=== PATIENT | male | born 1945 | race Caucasian/White ===

== ENCOUNTER 2017-01-08 19:30 | Emergency (ER) | payer OTHER, MEDICARE ==
[~2017-01-08] VITALS: Ht 172.7 cm; Wt 122.5 kg
[~2017-01-08 19:30] MED LIST: ACETAMINOPHEN-1 EAC1 PO; ALBUTEROL2.5 MG/3 M INH; ALDACTONE25 MG PO; CARDURA4 MG PO; DEPO-TESTO100 MG/1 M IM; ERYTHROMYCIN250 MG; FENTANYL1 EAC2 TD; FOLIC ACID1 MG PO; FORADIL1 INHALATI INH; HUMULIN N100 UNIT/2; HYDROXYZINE HCL25 MG; IODINE30 ML; KLOR-CON 1010 MEQ PO; LASIX40 MG PO; LIDODERM700 MG TOP; LOSARTAN POTAS100 MG PO; METFORMIN HCL500 MG PO; METHOTREXA25 MG/1 ML INJ; MOBIC15 MG; NORTRIPTYLINE H25 MG PO; NORVASC5 MG PO; OMEPRAZOLE40 MG PO; PAXIL20 MG PO; PERCOCET 5-3251 EACH PO; PULMICORT FLE180 MCG IH; SYNTHROID50 MCG; TRAZODONE HCL50 MG PO; TRIAMCINOLONE A15 G1; VESICARE10 MG PO; VITAMIN D-32000 UNIT PO; VOLTAREN-XR100 MG PO
[2017-01-08] MEDS ORDERED: LEVOTHYROXINE100 MCG PO (19:54)
[2017-01-08] MEDS ORDERED: MORPHINE SULFAT30 M1 PO (19:55)
[2017-01-08] MEDS ORDERED: NOVOLOG MI100 UNIT/2 SUB-Q (19:58)
[2017-01-08] MEDS ORDERED: PREDNISONE5 MG PO (20:00)
[2017-01-08] MEDS ORDERED: DEXAMETHASO4 MG/1 ML INJ (20:01)
[2017-01-08] MEDS ORDERED: DEXAMETHAS10 MG/1 ML INJ (20:01)
[2017-01-08] MEDS ORDERED: ATORVASTATIN CA20 MG PO (20:01)
[2017-01-08] MEDS ORDERED: GLUCAGON EMERGEN1 MG INJ (20:02)
[2017-01-08] MEDS ORDERED: OMEPRAZOLE20 MG PO (20:02)
[2017-01-08] MEDS ORDERED: PERFOROMIS20 MCG/2 M INH (20:03)
[2017-01-08] MEDS ORDERED: BUDESONIDE0.25 MG/2 INH (20:03)
[2017-01-08] MEDS ORDERED: CLINDAMYCIN HC300 MG PO (23:41)
[2017-01-19] MEDS ORDERED: MORPHINE SULFAT15 MG PO (11:23)
[2017-01-19] MEDS ORDERED: NYSTOP60 GM TOP (11:28)
[2017-01-19] MEDS ORDERED: CORTISONE99 GM TOP (11:33)
[2017-01-19] MEDS ORDERED: ADVAIR 250-501 EACH INH (11:38)
[2017-01-19] MEDS ORDERED: THERA TEARS1 EACH OPTH (11:39)
[2017-01-19] MEDS ORDERED: SYSTANE BALANCE10 ML OPTH (11:40)
[2017-01-19] MEDS ORDERED: BETAMETHASONE D15 G2 TOP (11:41)
== END 2017-01-09 00:06 | disposition home or self-care (01) ==
LOC: ED 19:30
DX: T81.4XXA Infection following a procedure, initial encounter (principal); N99.89 Other postprocedural complications and disorders of genitourinary system; I10 Essential (primary) hypertension; F32.9 Major depressive disorder, single episode, unspecified; J44.9 Chronic obstructive pulmonary disease, unspecified; E11.9 Type 2 diabetes mellitus without complications; C64.2 Malignant neoplasm of left kidney, except renal pelvis; Z79.899 Other long term (current) drug therapy; Z79.4 Long term (current) use of insulin; Z87.891 Personal history of nicotine dependence; Z88.2 Allergy status to sulfonamides; Z88.8 Allergy status to other drugs, medicaments and biological substances; Z88.5 Allergy status to narcotic agent; Z88.1 Allergy status to other antibiotic agents
CPT/HCPCS: 74176; 80053; 81001; 83605; 85025; 96361; 96365; 96375; 99284; J1170; J2405; J3010; J3370; J7030

== ENCOUNTER 2017-01-18 17:19 | Emergency (ER) | payer MEDICARE, OTHER ==
[~2017-01-18] VITALS: Ht 172.7 cm; Wt 114.3 kg
[~2017-01-18 17:19] MED LIST changes: +ATORVASTATIN CA20 MG PO; +BUDESONIDE0.25 MG/2 INH; +CLINDAMYCIN HC300 MG PO; +DEXAMETHAS10 MG/1 ML INJ; +DEXAMETHASO4 MG/1 ML INJ; +GLUCAGON EMERGEN1 MG INJ; +LEVOTHYROXINE100 MCG PO; +MORPHINE SULFAT30 M1 PO; +NOVOLOG MI100 UNIT/2 SUB-Q; +OMEPRAZOLE20 MG PO; +PERFOROMIS20 MCG/2 M INH; +PREDNISONE5 MG PO
[2017-01-18] MEDS ORDERED: TERAZOSIN HCL5 MG PO (18:07)
[2017-01-18] MEDS ORDERED: POTASSIUM CHLO10 ME1 PO (18:09)
[2017-01-19] MEDS ORDERED: MORPHINE SULFAT15 MG PO (11:23)
[2017-01-19] MEDS ORDERED: NYSTOP60 GM TOP (11:28)
[2017-01-19] MEDS ORDERED: CORTISONE99 GM TOP (11:33)
[2017-01-19] MEDS ORDERED: ADVAIR 250-501 EACH INH (11:38)
[2017-01-19] MEDS ORDERED: THERA TEARS1 EACH OPTH (11:39)
[2017-01-19] MEDS ORDERED: SYSTANE BALANCE10 ML OPTH (11:40)
[2017-01-19] MEDS ORDERED: BETAMETHASONE D15 G2 TOP (11:41)
--- NOTE | 2017-01-19 13:43 | EKG ---
[facility] [address] [facility] [place] [address] Signed Sinus tachycardia Otherwise normal ECG No previous ECGs available Confirmed by VALENTINO JACOBS MD ([id number]) on 01/19/2017 1:42:57 PM Electronically Signed By: VALENTINO JACOBS MD 01/19/17 1343 PATIENT NAME: KAILA TRAVIS Electrocardiogram DATE OF : 49 PHYSICIAN: VALENTINO JACOBS MD REPORT #: [id number] REPORT IS CONFIDENTIAL AND NOT TO BE RELEASED WITHOUT AUTHORIZATION
== END 2017-01-18 21:26 | disposition home or self-care (01) ==
LOC: ED 17:19
DX: E86.0 Dehydration (principal); E11.9 Type 2 diabetes mellitus without complications; I10 Essential (primary) hypertension; F32.9 Major depressive disorder, single episode, unspecified; F41.9 Anxiety disorder, unspecified; J44.9 Chronic obstructive pulmonary disease, unspecified; J45.909 Unspecified asthma, uncomplicated; E21.3 Hyperparathyroidism, unspecified; Z88.2 Allergy status to sulfonamides; Z88.1 Allergy status to other antibiotic agents; Z88.5 Allergy status to narcotic agent; Z88.8 Allergy status to other drugs, medicaments and biological substances; Z79.899 Other long term (current) drug therapy; Z79.4 Long term (current) use of insulin; Z79.51 Long term (current) use of inhaled steroids
CPT/HCPCS: 71020; 80053; 81001; 84484; 85025; 93005; 93010; 94640; 96360; 96372; 99284; J7030

== ENCOUNTER 2017-01-28 10:47 | Day surgery (SDC) | payer OTHER, MEDICARE ==
[~2017-01-28] VITALS: Ht 172.7 cm; Wt 114.3 kg
[~2017-01-28 10:47] MED LIST changes: +ADVAIR 250-501 EACH INH; +BETAMETHASONE D15 G2 TOP; +CORTISONE99 GM TOP; +MORPHINE SULFAT15 MG PO; +NYSTOP60 GM TOP; +POTASSIUM CHLO10 ME1 PO; +SYSTANE BALANCE10 ML OPTH; +TERAZOSIN HCL5 MG PO; +THERA TEARS1 EACH OPTH
--- NOTE | 2017-01-28 12:43 | NUR ---
01/28/17 Sherine3 Shawna Bain 1215 PT ARRIVED TO PACU ASLEEP AND IN THE RIGHT LATERL POSITION. MAINTAINING HIS OWN AIRWAY.
--- NOTE | 2017-02-02 15:04 | OR ---
[facility] [address] [place] [address] Signed DATE OF PROCEDURE: 01/28/17 PROCEDURE Left posterior iliac crest bone marrow biopsy and aspirate. DESCRIPTION OF PROCEDURE After explaining the risks and benefits of bone marrow biopsy and aspiration under conscious sedation and obtaining informed written consent, the patient was taken to a private area of the post anesthesia recovery unit where a time-out was taken and the patient and the procedure were correctly identified. He was placed in the prone position. The left posterior iliac crest was prepped and draped in the usual sterile manner. Conscious sedation was supplied by SILVA Souza with 100 mcg of intravenous fentanyl and 4 mg of intravenous midazolam. A local anesthesia over the left posterior iliac crest was obtained with 2 mL of 1% lidocaine and left posterior iliac crest bone marrow biopsy and aspirate were obtained without adverse affects. Micki Bansal MD RQ/Modl /[id number] cc: GALEN MEZA MD Electronically Signed By: MICKI BANSAL MD 02/02/17 1504 PATIENT NAME: KAILA TRAVIS OPERATIVE REPORT DATE OF : 49 PHYSICIAN: MICKI BANSAL MD REPORT #: [id number] REPORT IS CONFIDENTIAL AND NOT TO BE RELEASED WITHOUT AUTHORIZATION
== END 2017-01-28 13:09 | disposition home or self-care (01) ==
LOC: DS 10:47 → OPS 10:47 → DS 12:00 → OPS 13:09
PROVIDERS: Specialist
PROC: 07DR3ZX Extraction of Iliac Bone Marrow, Percutaneous Approach, Diagnostic (ICD-10-PCS; principal; 2017-01-28 12:00)
DX: C90.30 Solitary plasmacytoma not having achieved remission (principal); F43.10 Post-traumatic stress disorder, unspecified; G47.33 Obstructive sleep apnea (adult) (pediatric); E11.8 Type 2 diabetes mellitus with unspecified complications; J44.9 Chronic obstructive pulmonary disease, unspecified; E03.9 Hypothyroidism, unspecified; G89.4 Chronic pain syndrome; F41.9 Anxiety disorder, unspecified; F32.9 Major depressive disorder, single episode, unspecified; D86.9 Sarcoidosis, unspecified; I10 Essential (primary) hypertension; Z98.1 Arthrodesis status; Z98.890 Other specified postprocedural states; Z87.891 Personal history of nicotine dependence; Z88.1 Allergy status to other antibiotic agents; Z88.5 Allergy status to narcotic agent; Z88.2 Allergy status to sulfonamides; Z88.8 Allergy status to other drugs, medicaments and biological substances
CPT/HCPCS: 80053; 82232; 82784; 83883; 84155; 84165; 85025; 86334; 99152; J2250; J3010